=== PATIENT | male | born 1975 | race Hispanic/Latino ===

== ENCOUNTER 2021-04-14 12:38 | Emergency (ER) | payer SELFPAY ==
[~2021-04-14] VITALS: Ht 177.8 cm; Wt 90.7 kg
== END 2021-04-14 13:44 | disposition home or self-care (01) ==
LOC: ER 12:46
DX: M79.89 Other specified soft tissue disorders (principal); M70.22 Olecranon bursitis, left elbow; F17.210 Nicotine dependence, cigarettes, uncomplicated
CPT/HCPCS: 99283